=== PATIENT | male | born 1950 | race Caucasian/White ===

== ENCOUNTER 2019-02-27 05:59 | Day surgery (SDC) | payer MEDICARE, OTHER ==
[~2019-02-27] VITALS: Ht 175.3 cm; Wt 73.2 kg
[~2019-02-27 05:59] MED LIST: ECOT81TA5 PO; FLOM0.4C39 PO; SIMV20TA2 PO
[2019-02-27] MEDS ORDERED: LR 1,000 ML IV ONE (06:00)
[2019-02-27] MEDS ORDERED: BUPIVACAINE/EPIN 0.25% 30 ML VIAL As Ordered ONE (07:07)
[2019-02-27] MEDS ORDERED: PROPOFOL 200 MG/20 ML VIAL As Ordered ONE (07:20)
[2019-02-27] MEDS ORDERED: ROCURONIUM BROMIDE 50 MG/5 ML VIAL As Ordered ONE (07:20)
[2019-02-27] MEDS ORDERED: LIDOCAINE 2% INJ 100 MG/5 ML SDV (FOR ANES.) As Ordered ONE (07:20)
[2019-02-27] MEDS ORDERED: MIDAZOLAM INJ 2 MG/2 ML VIAL (J2250) As Ordered ONE (07:20)
[2019-02-27] MEDS ORDERED: fentaNYL 100 MCG/2 ML INJECTION (J3010) As Ordered ONE ×2 (07:21→07:54)
[2019-02-27] MEDS ORDERED: dexameTHASONE 4 MG/ML 1ML VIAL (J1100) As Ordered ONE (08:05)
[2019-02-27] MEDS ORDERED: ONDANSETRON 4MG/2ML VIAL (J2405) As Ordered ONE (08:05)
[2019-02-27] MEDS ORDERED: LR 1,000 ML IV SCH (09:00)
[2019-02-27] MEDS ORDERED: MORPHINE 10 MG/ML 1ML VIAL (J2270) IV PRN (09:00)
[2019-02-27] MEDS ORDERED: fentaNYL 100 MCG/2 ML INJECTION (J3010) IV PRN (09:00)
[2019-02-27] MEDS ORDERED: PERCOCET 5MG/325MG TAB PO PRN (09:00)
[2019-02-27] MEDS ORDERED: ONDANSETRON 4MG/2ML VIAL (J2405) IV PRN (09:00)
[2019-02-27] MEDS ORDERED: PERCOCET 5MG/325MG TAB As Ordered ONE (09:07)
[2019-02-27] MEDS ORDERED: NORCO, ANEXSIA 5/325MG TABLET (HYDROcodone/ACETAMINOPHEN) PO PRN (09:15)
--- NOTE | 2019-02-27 09:17 | ECGEPIP ---
[facility] Test Date: 2019-02-27 Pat Name: PEPE ORELLANA Department: Room: - Gender: Male Clinical Psychologist Licensed: : 1950 Requested By: MIKA Rice Order Number: [id number] Reading MD: Cristiana Alvarado Measurements Intervals [place] Rate: 51 P: 40 VT: 193 QRS: 56 QRSD: 101 T: 62 QT: 442 QTc: 409 Interpretive Statements SINUS BRADYCARDIA NO PRIOR Electronically Signed on 02-27-2019 9:16:56 EDT by Cristiana Alvarado
[2019-02-27] MEDS ORDERED: oxyCODONE 5MG TAB As Ordered ONE (10:03)
[2019-02-27] MEDS ORDERED: oxyCODONE 5MG TAB PO ONE (11:00)
[2019-02-27 11:05] VITALS: BP 124/67
--- NOTE | 2019-03-02 19:49 | RO ---
DATE OF PROCEDURE: 02/27/2019 PREOPERATIVE DIAGNOSIS: Left inguinal hernia. POSTOPERATIVE DIAGNOSIS: Left inguinal hernia. PROCEDURE: Robotic left inguinal hernia repair. SURGEON: Dr. Ignacio Edmonds ADAPTED PHYSICAL EDUCATION SPECIALIST: None. ANESTHESIA: General. ESTIMATED BLOOD LOSS: 5 mL. COMPLICATIONS: None. INDICATIONS FOR PROCEDURE: The patient is a 68-year-old male who presents with left inguinal pain. Recommendation was to proceed with left inguinal hernia repair. Risks and benefits of the procedure not limited to but including bleeding, infection, hernia formation, damage to surrounding structures, hernia recurrence and need for further surgery were discussed in detail with the patient. Informed consent was obtained and procedure planned. DESCRIPTION OF PROCEDURE: The patient was brought back to operating room seven, after sufficient sedation, the abdomen was sterilely prepped and draped. Next, a time-out was done to confirm proper patient, proper procedure. Following that, a stab incision was made in left lower quadrant, Veress needle was inserted and the abdomen was insufflated to 15 mmHg. Next, an 8 mm incision was made supraumbilically in the midline and an 8 mm Optiview robotic port was placed. Next, the Veress needle site was examined. There were no signs of any injury. Veress needle was removed. Two more 8 mm ports were placed in the left and right midabdomen. Robot was then connected to the ports, from the console. Inside the abdomen, the left preperitoneal space was dissected, and a curved incision overlying the inguinal canal. This dissection was carried free medially and laterally dissecting the preperitoneal space all the way til the pubic symphysis was reached. Once that was completed, it was dissected posteriorly surrounding the cord structures, Hernia sac was carefully dissected free, tucked in posteriorly. Next, a Bard 3DMax light medium size mesh was placed into the left preperitoneal space. It was sutured to the pubic symphysis with an #0 Vicryl suture. The peritoneum was then closed over top of the mesh using a running #2-0 V-Loc suture. Once this was completed, the abdomen was desufflated. Skin incisions closed with #4-0 Vicryl subcuticular sutures. The abdomen was cleaned and dried. Steri-Strips, 4x4, and tape were applied, thus ending procedure.
== END 2019-02-27 11:15 | disposition home or self-care (01) ==
LOC: M SDC 05:59
PROVIDERS: ATTEND Surgery
DX: K40.90 Unilateral inguinal hernia, without obstruction or gangrene, not specified as recurrent (principal); E78.5 Hyperlipidemia, unspecified; F17.210 Nicotine dependence, cigarettes, uncomplicated; Z79.899 Other long term (current) drug therapy; I73.9 Peripheral vascular disease, unspecified
CPT/HCPCS: 49650; 93005; C1781; J0690; J1100; J2250; J2405; J3010